=== PATIENT | female | born 1975 | race Caucasian/White ===

== ENCOUNTER → 2019-06-25 13:11 | Outpatient (CLI) | payer OTHER, MEDICAID, SELFPAY ==
--- NOTE | 2019-06-25 | DI.MRI.S_ITS ---
PROCEDURE: MR KNEE RT WO CON INDICATIONS: Pain in right knee TECHNIQUE: Noncontrast sagittal PD fast spin echo and T2 fast spin echo with fat saturation, sagittal 3-D FLASH with fat saturation; coronal T1 spin echo and PD fast spin echo with fat saturation, and axial PD fast spin echo with fat saturation through the knee. COMPARISON: None. FINDINGS: Image quality: Excellent. Menisci: There is medial extrusion of the medial meniscus. Linear horizontally oriented high T2 signal intensity traverses the medial meniscal body, demonstrating inferior articular surface extension, indicating horizontal tearing. Lateral meniscus is intact. Cruciate ligaments: The anterior and posterior cruciate ligaments appear intact. Medial structures: The medial collateral ligament appears intact. Small amount of fluid deep to the medial collateral ligament. Visualized portions of the pes anserinus tendons appear normal. No abnormal bursal fluid. Venous varus is within the medial subcutaneous fat. Lateral structures: The lateral collateral ligament, long and short heads of the biceps femoris tendon appear intact. The popliteus tendon appears normal. Iliotibial band appears normal. Venous varices within the lateral subcutaneous fat. Anterior structures: The quadriceps and patellar tendons appear intact. Patellar alignment is normal. No femoral trochlear dysplasia or ventral trochlear prominence. No edema in the infrapatellar fat pad. Bones and cartilage: No bone marrow contusions or fractures. Moderate tricompartmental periarticular osteophyte formation. Red marrow reconversion within the distal femur and proximal tibia. Severe articular cartilage loss diffusely overlies the weightbearing aspects of the medial femoral condyle and medial tibial plateau. Mild articular cartilage loss overlies the lateral aspect of the lateral patellar facet. There is a 7 mm region of the examination involving the articular cartilage overlying the medial patellar apex inferiorly. Joint space: There is a moderate knee joint effusion and a small Iyer's cyst. Multiple small intra-articular loose bodies are present measuring less than 10 mm diameter. Normal appearing synovial plicae are incidentally noted. IMPRESSION: 1. 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 2. Medial meniscal tearing. 3. Knee joint effusion and Iyer's cyst. Intra-articular loose bodies. 4. Medial collateral ligament bursitis. 5. Venous varices within the medial and lateral subcutaneous fat. Dictated by: Ashley Joshi M.D. on 06/25/2019 at 15:18 Approved by: Ashley Joshi M.D. on 06/25/2019 at 15:21
== END ==
PROVIDERS: Referring Provider Orthopaedic Surgery; Visit Provider Orthopaedic Surgery
DX: M25.561 Pain in right knee (principal); S83.241A Other tear of medial meniscus, current injury, right knee, initial encounter; M17.11 Unilateral primary osteoarthritis, right knee; M25.461 Effusion, right knee; M71.21 Synovial cyst of popliteal space [Baker], right knee; M71.561 Other bursitis, not elsewhere classified, right knee; I83.91 Asymptomatic varicose veins of right lower extremity
CPT/HCPCS: 73721

== ENCOUNTER → 2020-12-25 11:15 | Outpatient (CLI) | payer OTHER, MEDICAID, SELFPAY ==
[2020-12-25 13:45] LABS: Add Manual Diff / Slide Review NO; Basophils Absolute Auto 100 /uL (0-100); Basophils Percent Auto 0.5 % (0-2); Eosinophils Absolute Auto 200 /uL (0-450); Eosinophils Percent Auto 2.6 % (2-4); Hematocrit 39.7 % (36-46); Hemoglobin 13.4 g/dL (12.0-16.0); Lymphocytes Absolute Auto 2300 /uL (1100-4500); Lymphocytes Percent Auto 24.5 % (25-40); Mean Corpuscular HGB Conc 33.8 % (30-36); Mean Corpuscular Hemoglobin 30.2 PG (26-34); Mean Corpuscular Volume 89.4 fL (80-100); Monocytes Absolute Auto 700 /uL (0-900); Monocytes Percent Auto 7.4 % (3-14); Neutrophils Absolute Auto 6100 /uL (1500-7000); Platelet Count 261 X10^3/uL (150-400); Red Blood Cell Count 4.44 X10^6/uL (4.0-5.2); Red Cell Distribution Width 12.7 % (11.6-14.8); White Blood Cell Count 9.4 X10^3/uL (4.5-11.0)
[2020-12-25 14:16] LABS: BUN Creatinine Ratio 20.3 (6-22); Blood Urea Nitrogen 16 mg/dL (7-17); Calcium 9.7 mg/dL (8.4-10.2); Carbon Dioxide 27 mmol/L (22-32); Chloride 105 mmol/L (98-107); Estimated Glomerular Filt Rate > 60.0 mL/min (>60); Glucose 86 mg/dL (70-100); HEMOLYSIS < 15 (0-50); Potassium 4.1 mmol/L (3.4-5.1); Sodium 140 mmol/L (137-145)
[2020-12-25 14:26] LABS: Appearance Urine UA CLEAR; Bilirubin Urine UA NEGATIVE (NEGATIVE); Color Urine UA YELLOW; Glucose Urine UA NEGATIVE (Negative); Ketones Urine UA NEGATIVE (NEGATIVE); Leukocyte Esterase Urine UA NEGATIVE (NEGATIVE); Nitrite Urine UA NEGATIVE (Negative); Occult Blood Urine UA NEGATIVE (Negative); Protein Urine UA NEGATIVE (Negative); Urobilinogen Urine UA 0.2 E.U./dL (0.2)
[2020-12-25 14:46] LABS: pH Urine UA 5.5 (4.5-8.0)
[2020-12-25 15:00] LABS: Bacteria Urine Occasional (0-1); Culture Indicated Urine Cult Not Indicated; RBC Urine 0-1/HPF (0-5/HPF); Squamous Epithelial Cell Urine 0-1 /HPF (0-5/HPF); WBC Urine 0-1/HPF (0-5/HPF)
== END ==
PROVIDERS: Referring Provider Orthopaedic Surgery; Visit Provider Orthopaedic Surgery
DX: Z01.818 Encounter for other preprocedural examination (principal); Z01.812 Encounter for preprocedural laboratory examination; R73.9 Hyperglycemia, unspecified; N39.0 Urinary tract infection, site not specified
CPT/HCPCS: 36415; 80048; 81001; 83036; 85025; 93005

== ENCOUNTER → 2021-01-05 08:21 | Outpatient (CLI) | payer OTHER, MEDICAID, SELFPAY ==
[2021-01-05 11:45] LABS: COVID19 -Nasal RAPID Negative (Negative)
== END ==
PROVIDERS: Visit Provider Physician Assistant
DX: Z01.812 Encounter for preprocedural laboratory examination (principal); Z20.822 Contact with and (suspected) exposure to COVID-19
CPT/HCPCS: 87635; C9803

== ENCOUNTER 2021-01-06 12:44 | Day surgery (SDC) | payer OTHER, MEDICAID, SELFPAY ==
[2020-12-31 11:29] VITALS: BMI 34.0
[2021-01-06] VITALS (13 sets, daily range): BP systolic 105–152; BP diastolic 71–94; PULSE 53–69; RESP 12–18; TEMP 35.9–37.2; O2SAT 95–100; BMI 34.0
[2021-01-06] MEDS: fentaNYL 100 MCG/2 ML INJ IV (01:00)
--- NOTE | 2021-01-06 06:36 | DI.RAD.S_ITS ---
PROCEDURE: XR KNEE RT 1TO2V INDICATIONS: TOTAL RIGHT KNEE TECHNIQUE: 2 view(s) of the knee acquired. COMPARISON: None. FINDINGS: Bones: Patient is status post knee joint arthroplasty. Hardware components are in expected positions. Visualized bony structures are intact. Soft tissues: Overlying postoperative changes are noted. IMPRESSION: Normal alignment after right total knee arthroplasty. Dictated by: Robbie Rosenberg M.D. on 01/06/2021 at 16:31 Approved by: Robbie Rosenberg M.D. on 01/06/2021 at 16:31
[2021-01-06] MEDS: VANCOMYCIN 1,000 MG/200 ML PIGGYBACK 200 MG IV (12:54)
[2021-01-06] MEDS: LACTATED RINGERS 1,000 ML 42 ML IV ×2 (12:55→14:54)
[2021-01-06] MEDS: PREGABALIN 75 MG CAPSULE PO (12:56)
[2021-01-06] MEDS: CELECOXIB 200 MG CAPSULE PO (12:56)
[2021-01-06] MEDS: ACETAMINOPHEN 325 MG TABLET 975 MG PO (12:56)
[2021-01-06] MEDS: fentaNYL 100 MCG/2 ML INJ 50 MCG IV (13:20)
[2021-01-06] MEDS: MIDAZOLAM 2 MG/2 ML VIAL IV (13:21)
--- NOTE | 2021-01-06 13:21 | SUR.PREOP ---
Fentanyl 100 mcg given during block per verbal order from Dr Milner
--- NOTE | 2021-01-06 13:30 | PM.PREOP ---
Pre-operative Note COVID-19 COVID-19 status: Negative Interval Note History & Physical reviewed/Exam performed by Physician: Yes Changes to H&P: No
--- NOTE | 2021-01-06 13:31 | P.OP_ITS ---
Operative Date/Time/Diagnoses Date of procedure: 01/06/21 Time of procedure: 13:36 Pre-op diagnosis: Right knee OA. Severe venous varicosities Post-op diagnosis: same Procedure & Clinicians Procedure: Right total knee arthroplasty Same procedure as scheduled: Yes Indications: The patient has had progressively worsening right knee pain with ra diographic changes consistent with arthritis. Non-operative management has failed and the patient has requested total knee replacement. The risks, benefits and alternatives to surgery were discussed with the patient prior to proceeding. Risks discussed included, but were not limited to, failure to relieve pain, stiffness, infection, nerve damage, deep venous thrombosis, pulmonary embolism, stroke, coma, heart attack, permanent paralysis and , as well as the potential need for eventual revision of the prosthetic. Surgeon: Sole Fraser Parts Technician: Anais Ojeda Anesthesia Type: Spinal and Peripheral nerve block Operative Notes Findings: Severe right hip arthritis, good bone, adequate stability Closure Type: primary Specimen(s): none sent Prosthetic devices, grafts, tissues, transplants, or devices: [employer] BCS 2 size 5 femur, size 4 tibia, set +11 poly, patella 7.5 x 35 mm Applied: drain(s) Estimated Blood Loss (mL): 250 Tourniquet time (min): 86 Procedure in detail: The patient was seen in the pre-operative area, where the patient identified the right knee as the operative site and this was marked with my initials. The patient received pre-operative antibiotics, and was taken to the operating room and placed on the operative table in the supine position. After satisfactory anesthesia, a radio time sales supervisor out was performed. The right leg was encircled with a tourniquet about the proximal thigh, and the leg was prepared from the toes to the tourniquet with ChloroPrep in the usual fashion and draped through sterile drapes. The leg was elevated and exsanguinated with Eschmark bandage and the tourniquet inflated to [250] mmHg pressure. The knee was approached through an approximately 18 cm incision centered over the patella and carried into the knee through a medial parapatellar arthrotomy. She had very prominent varicose veins and several vein clips were used. A portion of the medial and lateral meniscus was resected. Soft tissue was carefully mobilized around the patella the patella was measured with a caliper. Bone was resected from the patella and the patellar height was reconstituted with up an appropriate sized patellar component. A cover was then placed on the patella. A small amount of additional medial and lateral meniscus was resected. The distal femur was cut at 5?. A [+2] cut was used. It looked like an appropriate distal femoral cut and the cut was made without difficulty. An extramedullary guide was used for the tibial cut. 10 mm was resected off the least affected side.The tibia was prepared. The rotation was assessed. The patient was placed in extension residual medial and lateral meniscus as well as any residual bone was carefully resected. [No] additional tibia was resected. Hemostasis was achieved especially posteriorly. Additional local was injected into the posterior capsule. The extension gap was assessed and additional releases for gap balancing were performed as necessary. It was checked with the gap hostel manager. The femoral component was trial was placed and the notch was finished. The rotation was assessed and the appropriate size femoral guide was placed on the distal femur and finishing cuts were made. There is no evidence of notching. The anterior, posterior and chamfer cuts were then made. The posterior osteophytes and soft tissues were then removed. The posterior capsule was injected with part of a mixture of 60 ml 0.25% Marcaine mixed with 20 ml Exparel for post operative pain control. The remainder of this mixture was injected into the capsule and subcutaneous tissues during cement curing. The tibial and femoral components were then placed and the knee placed through a range of motion. Range of motion was [0-130], with good stability throughout the range. The trials were then removed, and the tibia was finished. The bone was prepared with pulsatile lavage, and dried with a sponge. Cement was applied and the final prosthetics placed. Excess cement was removed during and after cement curing. A brief Betadine soak was performed. After confirming there was no extruded cement posteriorly, the final tibial insert was placed. The knee was copiously irrigated and the tourniquet deflated. Hemostasis was obtained with the Bovie cautery. A drain was placed and brought out superolaterally. The capsule was closed with interrupted nonabsorbable suture. The subcutaneous layer was closed with barbed sutures, and the skin with a running 3-0 V-Lock suture and Surgical glue. An Aquacel Ag dressing was applied and the patient was taken to recovery having tolerated the procedure well. Complications: none Post-operative Condition: stable Disposition: Acute Care Plan for aftercare: The patient will be maintained on a standard total knee replacement protocol with weight bearing as tolerated. The patient will receive aspirin followed by Xarelto and sequential compression devices for DVT prophylaxis. The patient will be discharged home when safe for the home environment.
[2021-01-06] MEDS: CEFAZOLIN 1 GM VIAL 2 GM IV ×2 (13:55→21:59)
--- NOTE | 2021-01-06 14:13 | SUR.OPER ---
Supine on padded OR bed. Pillow under head, arms secured on padded armboards <90 degree abduction. Safety belt across torso. Left Non-operative leg secured with tape over blanket over lower leg. Right Operative leg secured in DeMayo positioner and in control of the Surgeon. Foam padded brace at thigh of operative leg.
[2021-01-06] MEDS: BUPIVACAINE 0.25% W/ EPI 30 ML VIAL 60 ML INJ (14:27)
[2021-01-06] MEDS: BUPIVACAINE LIPOSOME 266 MG/20 ML VIAL INJ (14:27)
[2021-01-06] MEDS: SODIUM CHLORIDE IRRIG SOLUTION 250 ML, POVIDONE-IODINE SPONGE STICKS 1 APPLIC IRR (14:27)
[2021-01-06] MEDS: HYDROCODONE/ACET 5/325 TABLET 1 TAB PO ×2 (16:35→21:59)
--- NOTE | 2021-01-06 17:05 | SUR.PHASEI ---
PACU: REPORT CALLED TO [facility]. ALL QUESTIONS ANSWERED TO SATISFACTION, PASSED ON THAT HV DUE TO BE UNCLAMPED AT 1800. BROUGHT PATIENT UP TO RM 222 FOR FACE TO FACE HANDOFF. VSS, SCD'S ON, BED LOCKED IN LOW POSITION. CALL LIGHT IN REACH.
[2021-01-06] MEDS: LACTATED RINGERS 1,000 ML 100 ML IV (17:18)
[2021-01-06] MEDS: IBUPROFEN 400 MG TABLET PO ×2 (17:18→20:19)
[2021-01-06] MEDS: ONDANSETRON 4 MG/2 ML INJ IV (17:44)
[2021-01-06] MEDS: ACETAMINOPHEN 325 MG TABLET 650 MG PO (20:19)
[2021-01-06] MEDS: ASPIRIN EC 81 MG TABLET PO (20:20)
[2021-01-06] MEDS: DOCUSATE 100 MG CAPSULE PO (20:20)
--- NOTE | 2021-01-06 22:18 | PC.NURSE ---
unclamped hv @1800. HV had 300cc out. pt ambulated to the bsc. denies dizziness or light headedness. vitals stable. pt voiding and drinking fluids. bed alarm active.
[2021-01-07] MEDS: IBUPROFEN 400 MG TABLET PO ×4 (00:09→11:55)
[2021-01-07 00:15] VITALS: PULSE 60
[2021-01-07 03:15] VITALS: BP 121/74; PULSE 72; RESP 18; TEMP 36.6; O2SAT 99
[2021-01-07] MEDS: HYDROCODONE/ACET 5/325 TABLET 1 TAB PO ×3 (03:31→11:55)
[2021-01-07 04:57] LABS: Hematocrit 32.9 % (36-46)
[2021-01-07] MEDS: CEFAZOLIN 1 GM VIAL 2 GM IV (05:32)
[2021-01-07] MEDS: SODIUM CHLORIDE 0.9% FLUSH 10 ML IV ×2 (05:49→08:24)
[2021-01-07 08:00] VITALS: BP 114/74; PULSE 59; RESP 17; TEMP 36.5; O2SAT 99
[2021-01-07] MEDS: DOCUSATE 100 MG CAPSULE PO (08:19)
[2021-01-07] MEDS: ASPIRIN EC 81 MG TABLET PO (08:19)
--- NOTE | 2021-01-07 08:20 | PM.DS.1 ---
History of Present Illness History of Present Illness Date Patient Seen: 01/07/21 Time Patient Seen: 08:20 Chief complaint: Right Total Knee Arthroplasty *OPB* Narrative: Refer to previous HPI. Discharge Providers Provider Discharge Date: 01/07/21 Consults: 01/06/21 06:36 Consult to Anesthesiology Routine Comment: Consulting Provider: Anesthesiologist Reason for consultation: Regional block for post operative pain control 01/06/21 08:27 Consult to Anesthesiology Routine Comment: Consulting Provider: Anesthesiologist Reason for consultation: Regional block for post operative pain control 01/06/21 17:00 Consult to Discharge Planning Routine Comment: Consult to Physical Therapy Evaluate & Treat Comment: Physician Instructions: postop TKA protocol Consult to Respiratory Therapy Evaluate & Treat Comment: Physician Instructions: Evaluate and treat Discharge provider: Jono Moe PA-C Summary Hospital Course Discharge Diagnosis: Right knee osteoarthritis Status post right total knee arthroplasty Hospital Course: Patient was admitted to the hospital following the above-listed procedure for the above-listed diagnosis. Following the procedure the patient has been convalescing appropriately in her pain has been managed with current pain management regimen. Throughout the time hospital the patient has denied fever, chills, nausea, chest pain, shortness of breath, or urinary retention. Aquacel dressing over the incision site has remained clean, dry, and intact. Patient has received aspirin 81 mg twice daily for DVT prophylaxis along with the assistance of sequential compression devices. She has successfully work on ambulation with the assistance of a front wheeled walker with physical therapy. She has remained in standard total knee replacement protocol. Status at Discharge Cognitive/behavioral status at discharge: oriented Functional status at discharge: uses cane/walker Overall status at discharge: patient is progressing back to baseline Exam Vital Signs (past 8 hours): - 01/07/21 03:15 Temperature 97.9 F Pulse Rate 72 Respiratory Rate 18 Blood Pressure 121/74 Pulse Oximetry 99 Oxygen Delivery Method Room Air Oxygen Flow Rate 0 Narrative Exam Narrative: 45-year-old female postop day 1 status post right total knee arthroplasty. Patient is resting comfortably in bed, is in no acute distress, and is alert and oriented x3. Skin is warm and dry, skin surrounding the incision site is free of erythema, warmth, induration, or discharge. Aquacel dressing over the incision site is clean, dry, and intact. Good sensation appreciated throughout the bilateral lower extremities light touch. Ankle dorsiflexion, plantar flexion, eversion, inversion performed bilaterally without difficulty or discomfort. Calves are soft and nontender, negative Homans sign. DP pulses palpated bilaterally and are even. Mild tenderness to palpation along the anteromedial aspect of the proximal right thigh. No signs of DVT appreciated. Const General: cooperative, healthy appearing and comfortable Resp Effort & Inspection: normal respiratory effort and able to speak in complete sentences Skin General: no rashes or lesions noted Objective Labs Result Diagrams: 01/07/21 04:30 Labs: Laboratory Results - last 24 hr 01/07/21 04:30 Hgb 11.0 L Hct 32.9 L [facility] Medical History Anxiety Asthma Depression (~2007) DVT (deep venous thrombosis) (~2017) Hx of keloid of skin Osteoarthritis Surgical History No history of previous surgery Social History household members: none Smoking Status: Former smoker alcohol intake: former Discharge Assessment & Plan Assessment and Plan Assessment: Patient is doing well and is stable. Plan of Treatment: Patient is to continue physical therapy in the outpatient setting following discharge from the hospital. First postoperative visit in clinic is scheduled for 2 weeks following discharge. Current pain management regimen is to be continued as it is adequately controlled the patient's pain level. Aspirin 81 mg twice daily will be continued for DVT prophylaxis followed by Alli. Aquacel dressing over the incision site is to remain clean, dry, intact for 2 weeks. Contact clinic the dressing becomes damaged or soiled. Avoid placing topical ointments over the incision site or soaking the incision site. Patient is to remain weight-bearing as tolerated with the assistance of a front wheeled walker. She will remain in standard total knee replacement protocol. Patient is to contact clinic with any concerns or questions. Any signs of increased redness, swelling, warmth, pain, or discharge from around the incision site should be reported to the clinic. Discharge Plan Discharge Plan Patient Disposition: Home Provider Discharge Comment: Patient cleared for discharge pending PT clearance. Discharge orders & Medications Discharge Orders: Discharge (Order); Ordered 01/07/21 Ordered By: Jono Moe Prescriptions: New acetaminophen 325 mg Tablet 650 mg PO TID Qty: 90 RF: 0 hydrocodone-acetaminophen 5-325 mg Tablet 1 tab PO Q4HR PRN (Reason: Pain, Moderate (4-6)) Qty: 42 RF: 0 aspirin 81 mg Tablet,Delayed Release (Dr/Ec) 81 mg PO BID Qty: 90 RF: 0 ibuprofen 400 mg Tablet 400 mg PO Q4HR Qty: 90 RF: 0 No Action No Known Home Medications RF: 0 Diet/Activity/Treatments Diet: Diet as Tolerated and Regular Activity: Weight-bearing as tolerated with the assistance of front walker. Standard total knee replacement protocol. Skin/Wound/Dressing Care Report to your healthcare provider any signs of infection, such as:: chills, fever, night sweats, unusual drainage and unusual redness Dressing: Aquacel dressing over the incision site is to remain clean, dry, intact for 2 weeks. Contact clinic if the dressing becomes damaged or soiled. Other wound treatment: Avoid placing topical ointments over the incision site. Avoid soaking the incision site. Visit Report/Discharge Packet Instructions: DI for Knee Replacement Stand Alone Forms: Surgery Discharge Discharge Data Attending Provider: Sole Fraser VTE Deep Vein Thrombosis/Pulmonary Embolism Present on Admission: No
[2021-01-07] MEDS: ACETAMINOPHEN 325 MG TABLET 650 MG PO (08:23)
--- NOTE | 2021-01-07 09:45 | PT.IIE ---
Current Diagnoses Unilateral primary osteoarthritis, right knee (01/06/21) Surgery Performed Operation Date: 01/06/21 13:45 Actual Procedures p Total Knee Arthroplasty(Right) - Sole Fraser MD Medical History (Last Reviewed 01/07/21 @ 08:23 by Jono Moe PA-C) Anxiety Asthma Depression (~2007) DVT (deep venous thrombosis) (~2018) Hx of keloid of skin Osteoarthritis Physical Therapy Inpatient Evaluation/Re-Eval M1 PT/OT-IP Prior Functional Status Start: 01/07/21 11:55 Freq: NEEDED Status: Active Protocol: Document 01/07/21 09:45 AB (Rec: 01/07/21 12:07 AB [id number]) Medical Review Prior Functional Status Medical History Reviewed Yes Communication able to make needs known Mobility and Gait pt stated that she is independent with all mobilities and ambulation without AD Social History Household Members none Living Arrangements RV Number of Floors (Floors) One Floor Number of Stairs To Enter/Railing? no steps to enter Home Environment Tub/Shower Home Equipment Four Wheel Walker,Bedside Commode,Hospital Bed Additional Social History Comment pt has family living around the same property that can assist her as needed pt stated that she is planning to stay on a cottage without steps to enter and has a hospital bed that is set up and a bedside commode stated that she is not going to use her tub shower and has an outside hot water hose that she plans to use to shower and can sit on a chair M2 PT-IP Current Condition Start: 01/07/21 11:55 Freq: NEEDED Status: Active Protocol: Document 01/07/21 09:45 AB (Rec: 01/07/21 12:07 AB [email or web address]) Physical Therapy Current Condition Current Condition Evaluation Date 01/07/21 Treatment Diagnosis s/p R TKA; difficulty in walking Onset Date 01/06/21 Weight Bearing Status Weight Bearing Status Weight Bear as Tolerated Allowed Weight Bearing Amount (enter % RLE WBAT or #) (%) M3 PT-IP Subjective Start: 01/07/21 11:55 Freq: NEEDED Status: Active Protocol: Document 01/07/21 09:45 AB (Rec: 01/07/21 12:07 AB [email or web address]) Subjective Physical Therapy Visit Type Type Initial Evaluation Visit Start Time 09:45 Visit Stop Time 10:25 Total Visit Minutes 40 Number of STOCK BLENDER Visits 0 Physical Therapy Visit Comments Patient Comments agreeable to do PT Therapy Pain Assessment Pain When Pain Assessed At Rest Pain Present Pain Present Pain Reported Location Right Lower Leg Intensity 3 Scale Used Numeric (0 - 10) Pain Management Techniques Apply Cold,Modification of Treatment,Re-positioning, Timing of Activity with Medications M4 PT-IP Mobility and Gait Start: 01/07/21 11:55 Freq: NEEDED Status: Active Protocol: Document 01/07/21 09:45 AB (Rec: 01/07/21 12:07 AB [id number]) PT-Bed Mobility Assessment Supine to Sit Supine to Sit Standby Assistance Sit to Supine Sit to Supine Standby Assistance PT-Transfer Assessment Sit to and From Stand Sit to and from Stand Standby Assistance,Use of Upper Extremities Equipment Transfer Assistive Device Gait Belt,4 Wheeled Walker Orthotic/Prosthetic Devices or Brace: No Transfers Transfer Destination Chair Transfer Technique ambulated Transfer Ability Level of Assist Standby Assistance Comments Mobility Comments completed supine <>sit SBA. completed sit to stand SBA. educated on proper use of 4WW/ brakes and ambulated in room using 4WW SBA. agreed to walk in the hallway and completed ~ 75 ft using FWW SBA. presents with antalgic gait with increase trunk posterior leaning during mid swing to assist with LE movement. pt educated on technique and correct gait and noted decrease in trunk lurching back but still noticeable. pt stated that she is used to that gait for a long time but agreed to correct. pt agreed to sit on chair. positioned on chair. call light and table placed within reach. pt without any concerns Gait Assessment Gait Gait Assistance Required: Standby Assistance Distance (Feet) 75 Able to Maintain Weight Bearing Status Yes During Gait Assistive Devices Assistive Device Gait Belt,4 Wheeled Walker Orthotic/Prosthetic Devices or Brace: No Gait Deviations General Gait Pattern Antalgic,Decreased Stride Length,Decreased Feet Clearance Factors Limiting Gait Function Factors Limiting Gait Function Decreased Activity Tolerance, Decreased Strength,Limited Range of Motion,Pain,Poor Balance PT-Balance Assessment Sitting Balance and Reactions Static Sitting Balance Ability Good Dynamic Sitting Balance Ability Good Standing Balance and Reactions Static Standing Balance Ability Fair Dynamic Standing Balance Ability Fair Device Used 4WW M5 PT-IP Objective Assessments Start: 01/07/21 11:55 Freq: NEEDED Status: Active Protocol: Document 01/07/21 09:45 AB (Rec: 01/07/21 12:07 AB [email or web address]) Orientation Orientation/Cognition Level of Alertness Alert Orientation Name,Place,Situation Language Function Ability No Deficits Noted Safety Awareness Understands Safety Issues Memory Description No Deficits Noted Gross Range of Motion Lower Extremity ROM Assessment Right Impaired Impairments R knee flexion: ~ 50 degrees R knee flexion: 20 deg less to 0 Strength Lower Extremity Strength Assessment Right Impaired Hip 4-/5 Knee 3+/5 Coordination Assessment Gross Coordination Gross Coordination WNL Sensation Assessment Sensation Gross Sensation WNL Muscle Tone Muscle Tone WNL Yes M6 PT-IP Treatment Start: 01/07/21 11:55 Freq: NEEDED Status: Active Protocol: Document 01/07/21 09:45 AB (Rec: 01/07/21 12:07 AB [email or web address]) Physical Therapy Treatment Education Education Provided Precautions,Weight Bearing Status,Post-Op Packet,Safety M7 PT-IP Assessment and Plan Start: 01/07/21 11:55 Freq: NEEDED Status: Active Protocol: Document 01/07/21 09:45 AB (Rec: 01/07/21 12:07 AB [email or web address]) PT Summary Assessment and Plan Potential Rehabilitation Potential Good Status of Condition at Evaluation Stable Summary Impairments Pain,ROM,Strength,Balance, Coordination,Sensation,Tone, Cognition,Bed Mobility, Transfers,Gait,Activity Tolerance Assessment Summary pt requiring SBA with mobility using 4WW. pt will have family to assist her at home and stated that she is set up for outpt PT. pt may go home when stable. Goals Bed Mobility Goal Independent Transfer Goal Independent,Four Wheeled Walker Gait Goal Independent,Four Wheel Walker Gait Distance 250 Days to Meet Goals 3 Frequency of Treatment Frequency Of Treatment Twice a Day Treatment Plan Physical Therapy Treatment Plan Bed Mobility Training,Transfer Training,Gait Training, Therapeutic Exercise,Balance Retraining,Post Op Education, Discharge Planning,Hot or Cold Pack,Neuromuscular Re-ed, Coordination Retraining,Manual Therapy Precautions Other Precautions RLE WBAT Recommendations To Nursing Amount of Assist Needed Standby Assistance Discharge Recommendations PT Discharge Recommendations Home with Assistance, Outpatient PT Transportation Needs at Discharge Private Vehicle
--- NOTE | 2021-01-07 12:29 | PC.NURSE ---
Pt A&Ox3, VSS, afebrile on RA. LS CTA, BS +x4. Pt able to get up to BSC and BR this a.m. without difficulty. Pt evaluated by MD at bedside this a.m. and cleared for discharge home following PT. Pt medicated with PRN hydrocodone and scheduled pain medications with good effect reports pain reduced from 7/10 to 4/10 at tolerable level. Good po intake. hemovac dc'd with scant output. Aqua cell dressing C/D/I, no drainage. Pt with +1 minimal swelling to RLE, denies altered sensation. Pt verbalizes understanding of discharge instructions, activity, s/sx of infection, follow-up care and medications as well as dressing site care. ASSISTANT CENTER MANAGER escorted patient via wheelchair to private vehicle with brother. She has all of her belongings and FWW.
== END 2021-01-07 12:00 | disposition home or self-care (01) ==
LOC: OR 12:47 → AC 12:49
PROVIDERS: Referring Provider Orthopaedic Surgery; Visit Provider Orthopaedic Surgery
PROC: 0SRC0JZ Replacement of Right Knee Joint with Synthetic Substitute, Open Approach (ICD-10-PCS; CPT 27447; principal; 2021-01-06 13:45)
DX: M17.11 Unilateral primary osteoarthritis, right knee (principal); I83.91 Asymptomatic varicose veins of right lower extremity; F17.210 Nicotine dependence, cigarettes, uncomplicated; Z86.718 Personal history of other venous thrombosis and embolism; Z79.01 Long term (current) use of anticoagulants; F32.9 Major depressive disorder, single episode, unspecified; E66.9 Obesity, unspecified; Z68.34 Body mass index [BMI] 34.0-34.9, adult
CPT/HCPCS: 27447; 36415; 64450; 73560; 85014; 85018; 97161; 97530; C1776; C9290; J0690; J2250; J2405; J3010